=== PATIENT | female | born 1995 | race Caucasian/White ===

== ENCOUNTER 2016-11-15 20:18 | Emergency (ER) | payer MEDICAID ==
[~2016-11-15] VITALS: Ht 160 cm; Wt 80.0 kg
[~2016-11-15 20:18] MED LIST: ALBU8.5H5 IH; FOLI-49 PO; PREN1TAB12 PO
[2016-11-15 21:01] VITALS: Ht 160 cm; Wt 80.0 kg
[2016-11-15 23:37] LABS: URINE BLOOD (Dip) POC 1+ (NEGATIVE)
[2016-11-16] MEDS ORDERED: ONDANSETRON (ODT) 4 MG TAB ODT STA (00:02)
[2016-11-16 00:44] LABS: ALBUMIN 4.4 g/dl (3.3-4.9)
[2016-11-16 00:47] LABS: ALBUMIN/GLOBULIN RATIO 1.22; BILIRUBIN,INDIRECT 0.1 mg/dl (0-1.1); BILIRUBIN,TOTAL 0.1 mg/dl (0.2-1.3); CREATININE 0.49 mg/dl (0.44-1.00)
[2016-11-16 00:48] LABS: CALCIUM 9.1 mg/dl (8.4-10.2)
--- NOTE | 2016-11-16 00:57 | RADRPT ---
PROCEDURE: US Pelvis. CLINICAL INDICATION: Pelvic pain TECHNIQUE: Multiple sonographic images of the pelvis were obtained utilizing a transabdominal martha hnique. The images were reviewed on a PACS workstation. COMPARISON: No relevant exams are available FINDINGS: Uterus: Normal in size, contour and echogenicity with no evidence for myometrial masses. Size is est imated at 6.9 x 4.3 x 2.9 cm. Cervix: No abnormalities of significance are seen. Endometrium: Normal in thickness; 8.4 mm. Right ovary / adnexa: Normal in size estimated at 4 x 2.1 x 2 cm. No evidence for masses, normal b lood flow on Doppler interrogation. Left ovary/adnexa: Normal in size estimated at 3.4 x 1.7 x 1.7 cm. No evidence for solid masses, no rmal blood flow on Doppler interrogation. Incidental follicles are demonstrated. Cul-de-sac: No evidence of free fluid. RPTAT:HJJR IMPRESSION: Unremarkable pelvic ultrasound. Physician Joshua Date Time Electronically viewed and signed by Physician Joshua on 11/16/2016 00:57 JR/
[2016-11-16 02:09] LABS: BASOPHILS % 0.5 % (0.0-2.0); EOSINOPHILS % 3.5 % (0.0-7.0); HEMATOCRIT 41.1 % (37.0-47.0); HEMOGLOBIN 13.8 g/dl (12.0-16.0); LYMPHOCYTES % 32.2 % (15.0-51.0); MEAN CORPUSCULAR HGB CONC 33.6 g/dl (32.0-37.0); MEAN CORPUSCULAR VOLUME 92.4 fl (82.0-101.0); MEAN PLATELET VOLUME 8.6 fl (7.4-10.4); MONOCYTES % 3.9 % (0.0-11.0); NEUTROPHILS % 59.5 % (39.0-77.0); PLATELET COUNT 382 10^3/UL (140-440); RED BLOOD COUNT 4.45 10^6/ul (4.20-5.40); RED CELL DISTRIBUTION WIDTH 13.3 % (11.5-14.5); WHITE BLOOD COUNT 9.3 10^3/ul (4.8-10.8)
[2016-11-16 02:10] LABS: BASOPHIL # 0.1 10^3/ul (0.0-0.1); EOSINOPHILS # 0.3 10^3/ul (0.0-0.5); MONOCYTE # 0.4 10^3/ul (0.3-0.9); NEUTROPHIL # 5.5 10^3/ul (1.6-7.5)
[2016-11-16] MEDS ORDERED: ONDA8TAB14 PO (02:14)
[2016-11-16] MEDS ORDERED: ACET500C5 PO (02:15)
--- NOTE | 2016-11-16 02:20 | ERD ---
ER Documentation Chief Complaint Date/Time DATE: 11/16/16 TIME: 02:18 Chief Complaint diffuse abd pain x 10 days, N/V HPI Patient is a 21-year-old female with PMHx of asthma and anxiety who presents to the emergency department with diffuse abdominal pain 10 days with nausea and vomiting. Patient states that the pain is primarily in the bilateral lower quadrants. Pain is episodic in nature. Pain does not radiate. Patient states that her nausea and vomiting is worse in the morning. She states that she is unable to eat morning without vomiting. Patient is able to tolerate PO fluids. Patient denies any pain with urination, vaginal bleeding, or vaginal discharge. Patient denies any fever, chills, chest pain, shortness of breath, diaphoresis, changes in stools. LMP= 10/06/16. Patient states she is unsure if she is . ROS All systems reviewed and are negative except as per history of present illness. Medications Home Meds Active Scripts Acetaminophen* (Tylophen*) 500 Mg Capsule, 1 CAP PO Q6H Y for PAIN AND OR ELEVATED TEMP, #20 CAP Prov:MARIBLEL BRODERICK PA-C 11/16/16 Ondansetron (Ondansetron Odt) 8 Mg Tab.rapdis, 8 MG PO Q6H Y for NAUSEA AND/OR VOMITING, #10 TAB Prov:MARIBELL BRODERICK PA-C 11/16/16 Reported Medications Albuterol Sulfate* (Albuterol Sulfate* HFA) 8.5 Gm Hfa.aer.ad, 2 PUFF IH Q4H Y for WHEEZING AND SOB, EA 07/26/15 Folic Acid* (Folic Acid*) 1 Mg Tablet, 1 MG PO DAILY, TAB 06/28/15 Vit-Iron Fumarate-FA (Prenavite Tablet) 1 Tab Tablet, 1 TAB PO DAILY, TAB 01/13/15 Allergies Allergies: Coded Allergies: latex (Unverified Allergy, Unknown, 08/28/15) PMhx/Soc Medical and Surgical Hx: pt denies Medical Hx, pt denies Surgical Hx History of Surgery: No Anesthesia Reaction: No Hx Neurological Disorder: No Hx Respiratory Disorders: Yes (asthma) Hx Cardiac Disorders: No Hx Psychiatric Problems: Yes (anxiety) Hx Miscellaneous Medical Probl: No Hx Alcohol Use: Yes (former ) Hx Substance Use: No Hx Tobacco Use: Yes Smoking Status: Former smoker FmHx Family History: diabetes Physical Exam Vitals Vital Signs Date Time Temp Pulse Resp B/P Pulse Ox O2 Delivery O2 Flow Rate FiO2 11/16/16 02:30 100.0 98 18 105/75 98 Room Air 11/15/16 21:01 99.0 110 20 111/65 98 Physical Exam GENERAL: Well-developed, well-nourished female. Appears in no acute distress. HEAD: Normocephalic, atraumatic. EYES: Pupils are equally reactive bilaterally. EOMs grossly intact. No conjunctival erythema. ENT: Moist mucous membranes. No uvula deviation. No kissing tonsils. NECK: Supple. No lymphadenopathy or thyromegaly. No meningismus. LUNG: Clear to auscultation bilaterally. No rhonchi, wheezing, rales or coarse breath sounds. HEART: Regular rate and rhythm. No murmurs, rubs or gallops. ABDOMEN: No ecchymosis or rashes noted. Soft and nondistended. Tender to palpation of bilateral lower quadrants. Positive bowel sounds in all four quadrants. No rebound tenderness, no guarding. (-) McBurneys point tenderness. No CVA tenderness. BACK: No midline tenderness. EXTREMITIES: Equal pulses bilaterally. No peripheral clubbing, cyanosis or edema. No unilateral leg swelling. NEUROLOGIC: Alert and oriented. Moving all four extremities without any difficulty. Normal speech. Steady gait. SKIN: Normal color. Warm and dry. No rashes or lesions. Result Diagram: 11/16/16 0001 11/16/16 0001 Results 24 hrs Laboratory Tests Test 11/15/16 23:39 11/16/16 00:01 Bedside Urine Blood 1+ Bedside Urine Glucose (UA) Negative Bedside Urine Ketones (LAB) Negative Bedside Urine Leukocyte Esterase (L Negative Bedside Urine Nitrite (LAB) Negative Bedside Urine Protein (LAB) Trace Bedside Urine pH (LAB) 7.0 Alanine Aminotransferase (ALT/SGPT) 24IU/L Albumin 4.4g/dl Albumin/Globulin Ratio 1.22 Alkaline Phosphatase 148IU/L Anion Gap 18 Aspartate Amino Transf (AST/SGOT) 26IU/L Basophils # 0.110^3/ul Basophils % 0.5% Blood Urea Nitrogen 12mg/dl Calcium Level 9.1mg/dl Carbon Dioxide Level 28mmol/L Chloride Level 103mmol/L Creatinine 0.49mg/dl Direct Bilirubin 0.00mg/dl Eosinophils # 0.310^3/ul Eosinophils % 3.5% Globulin 3.60g/dl Glucose Level 103mg/dl Hematocrit 41.1% Hemoglobin 13.8g/dl Indirect Bilirubin 0.1mg/dl Lipase 54U/L Lymphocytes # 3.010^3/ul Lymphocytes % 32.2% Mean Corpuscular Hemoglobin 31.0pg Mean Corpuscular Hemoglobin Concent 33.6g/dl Mean Corpuscular Volume 92.4fl Mean Platelet Volume 8.6fl Monocytes # 0.410^3/ul Monocytes % 3.9% Neutrophils # 5.510^3/ul Neutrophils % 59.5% Nucleated Red Blood Cells # 0.010^3/ul Nucleated Red Blood Cells % 0.0/100WBC Platelet Count 97949^3/UL Potassium Level 4.0mmol/L Red Blood Count 4.4510^6/ul Red Cell Distribution Width 13.3% Sodium Level 145mmol/L Total Bilirubin 0.1mg/dl Total Protein 8.0g/dl White Blood Count 9.310^3/ul Current Medications Medications (Trade) Dose Ordered Sig/Sami Route PRN Reason Start Time Stop Time Status Last Admin Dose Admin Ondansetron HCl (Zofran Odt) 8 mg ONCE STAT ODT 11/16/16 00:02 11/16/16 00:05 DC 11/16/16 00:11 Procedures/MDM ED COURSE: The patient was stable throughout ED course. I kept the patient and/or family informed of laboratory and diagnostic imaging results throughout the ED course. DIAGNOSTIC IMAGING: Read by radiologist. DIAGNOSTIC IMAGING REPORT Patient: FILIBERTO TORRES : 1995 Age: 21 Sex: F MR #: [id number] DOS: 11/16/16 2344 Ordering MD: MARIBELL BRODERICK PA-C Location: [facility] Room/Bed: PROCEDURE: US Pelvis. CLINICAL INDICATION: Pelvic pain TECHNIQUE: Multiple sonographic images of the pelvis were obtained utilizing a transabdominal technique. The images were reviewed on a PACS workstation. COMPARISON: No relevant exams are available FINDINGS: Uterus: Normal in size, contour and echogenicity with no evidence for myometrial masses. Size is estimated at 6.9 x 4.3 x 2.9 cm. Cervix: No abnormalities of significance are seen. Endometrium: Normal in thickness; 8.4 mm. Right ovary / adnexa: Normal in size estimated at 4 x 2.1 x 2 cm. No evidence for masses, normal blood flow on Doppler interrogation. Left ovary/adnexa: Normal in size estimated at 3.4 x 1.7 x 1.7 cm. No evidence for solid masses, normal blood flow on Doppler interrogation. Incidental follicles are demonstrated. Cul-de-sac: No evidence of free fluid. RPTAT:HJJR IMPRESSION: Unremarkable pelvic ultrasound. Physician Joshua Date Time Electronically viewed and signed by Javier Urrutia Physician on 11/16/2016 00:57 JR/ CC: MARIBELL BRODERICK PA-C MEDICATIONS GIVEN: Patient was given Zofran 8 mg. Patient reported improvement in nausea and vomiting. No additional episodes of vomiting were noted during ED course. MEDICAL DECISION MAKING: This is a 21 year old female who presents with lower abdominal pain x 10 days with nausea and vomiting . Vital signs were reviewed. Patient is afebrile. CBC showed no evidence of systemic infection or severe anemia. CMP showed no evidence of electrolyte abnormalities, severe acidosis, renal failure, or liver disease. Alk phos was 148. Lipase showed no evidence of acute pancreatitis. Urine dip showed no evidence of acute infection, 1+ blood. Low suspicion for UTI , pyelonephritis or nephrolithiasis. Urine test was negative. Pelvic ultrasound was unremarkable. At this time, patient's presentation is most consistent with abdominal pain, nausea and vomiting. I have a much lower clinical concern for acute coronary syndrome, AAA, DKA, bowel perforation, bowel obstruction, cholecystitis, pancreatitis, GERD, splenic rupture, diverticulitis, UTI, pyelonephritis, nephrolithiasis, appendicitis, , ectopic , PID, ovarian torsion or tubo-ovarian abscess. PRESCRIPTIONS: Tylenol, Zofran DISCHARGE: At this time, patient is stable for discharge and outpatient management. I have instructed the patient to follow-up with his/her primary care physician in 1-2 days. I have instructed the patient to promptly return to the ER at any time for any new or worsening symptoms including increased pain, nausea, vomiting, diarrhea, fever, weakness or LOC. The patient and/or family expressed understanding of and agreement with this plan. All questions were answered. Home care instructions were provided. Departure Diagnosis: Primary Impression: Vomiting Vomiting type: unspecified Vomiting Intractability: unspecified Nausea presence: unspecified Qualified Code: R11.10 - Vomiting, intractability of vomiting not specified, presence of nausea not specified, unspecified vomiting type Additional Impression: Abdominal pain Abdominal location: unspecified location Qualified Code: R10.9 - Abdominal pain, unspecified location Condition: Stable Patient Instructions: Abdominal Pain, Vomiting (6Y-Adult) Referrals: [facility] YOU HAVE RECEIVED A MEDICAL SCREENING EXAM AND THE RESULTS INDICATE THAT YOU DO NOT HAVE A CONDITION THAT REQUIRES URGENT TREATMENT IN THE EMERGENCY DEPARTMENT. FURTHER EVALUATION AND TREATMENT OF YOUR CONDITION CAN WAIT UNTIL YOU ARE SEEN IN YOUR DOCTORS OFFICE WITHIN THE NEXT 1-2 DAYS. IT IS YOUR RESPONSIBILITY TO MAKE AN APPOINTMENT FOR FOLOW-UP CARE. IF YOU HAVE A PRIMARY DOCTOR --you should call your primary doctor and schedule an appointment IF YOU DO NOT HAVE A PRIMARY DOCTOR YOU CAN CALL OUR PHYSICIAN REFERRAL HOTLINE AT IF YOU CAN NOT AFFORD TO SEE A PHYSICIAN YOU CAN CHOSE FROM THE FOLLOWING [facility] [address] [facility]. [facility] [address] [facility]. [facility] [address] [facility] [facility] [address] [facility] [facility] [address] [facility]. [facility]. [address] [facility]. [facility] YOU HAVE RECEIVED A MEDICAL SCREENING EXAM AND THE RESULTS INDICATE THAT YOU DO NOT HAVE A CONDITION THAT REQUIRES URGENT TREATMENT IN THE EMERGENCY DEPARTMENT. FURTHER EVALUATION AND TREATMENT OF YOUR CONDITION CAN WAIT UNTIL YOU ARE SEEN IN YOUR DOCTORS OFFICE WITHIN THE NEXT 1-2 DAYS. IT IS YOUR RESPONSIBILITY TO MAKE AN APPOINTMENT FOR FOLOW-UP CARE. IF YOU HAVE A PRIMARY DOCTOR --you should call your primary doctor and schedule and appointment IF YOU DO NOT HAVE A PRIMARY DOCTOR YOU CAN CALL OUR PHYSICIAN REFERRAL HOTLINE AT . IF YOU CAN NOT AFFORD TO SEE A PHYSICIAN YOU CAN CHOSE FROM THE FOLLOWING FORMERLY [facility], [facility]1983 INSTITUTIONS: [facility] [address] [place] [address] [facility] [address] [place] [address] [facility] [address] [place] [address] Additional Instructions: Call your primary care doctor TOMORROW for an appointment during the next 1-2 days.See the doctor sooner or return here if your condition worsens before your appointment time. Return to emergency department for any new or worsening symptoms including abdominal pain, fever, chills, nausea, vomiting. MARIBELL BRODERICK PA-C Nov 16, 2016 02:20
[2016-11-16 02:30] VITALS: BP 105/75; PULSE 98; RESP 18; TEMP 100
== END 2016-11-16 02:31 | disposition home or self-care (01) ==
LOC: FTE 20:18
DX: R11.10 Vomiting, unspecified (principal); R10.31 Right lower quadrant pain; R10.32 Left lower quadrant pain; R11.2 Nausea with vomiting, unspecified; J45.909 Unspecified asthma, uncomplicated; Z87.891 Personal history of nicotine dependence
CPT/HCPCS: 76856; 80053; 81003; 83690; 85025; Z7610; 36415